=== PATIENT | male | born 1970 | race Caucasian/White ===

== ENCOUNTER 2017-07-16 21:42 | Emergency (ER) | payer BC, OTHER ==
[2017-07-16 21:51] VITALS: TEMP 98.1
[2017-07-16] MEDS ORDERED: NS 1,000 ML IV ONE (22:24)
[2017-07-16] MEDS ORDERED: HYDROmorphONE/DILAUDID 2 MG/ML INJ ONE (22:28)
[2017-07-16] MEDS ORDERED: ONDANSETRON 4 MG/2 ML VIAL ONE (22:28)
[2017-07-16] MEDS ORDERED: KETOROLAC 15 MG/1 ML SDV ONE (22:28)
[2017-07-16] MEDS ORDERED: ONDANSETRON 4 MG/2 ML VIAL IVP ONE (22:30)
[2017-07-16] MEDS ORDERED: HYDROmorphONE/DILAUDID 1 MG/ML INJ IVP ONE (22:30)
[2017-07-16] MEDS ORDERED: KETOROLAC 15 MG/1 ML SDV IVP ONE (22:31)
[2017-07-16 22:38] LABS: PLATELET COUNT 392 10^3/uL (150-400)
--- NOTE | 2017-07-16 23:06 | EDPHY ---
H & P Stated Complaint: R abd pain, N/V Time Seen by Provider: 07/16/17 22:12 HPI/ROS: HPI The patient presents with right-sided lower quadrant abdominal pain which began approximately 2.5 hr prior to presentation. He was walking down a flight of stairs when he had acute onset of achy right lower quadrant pain which radiated to his right flank. The pain is been constant though intermittently gets worse and sharp. It was associated with nausea without any vomiting. He has not had any fever, dysuria, hematuria. He has no prior history of similar pain. Today he awoke with a migraine headache and took a dose of Imitrex and slept for most of the day, he thinks he has been drinking less fluids than usual.. REVIEW OF SYSTEMS Constitutional: No fever, no chills. Eyes: No discharge. ENT: No sore throat. Cardiovascular: No chest pain, no palpitations. Respiratory: No cough, no shortness of breath. Gastrointestinal: See HPI Genitourinary: No hematuria. Musculoskeletal: No back pain. Skin: No rashes. Neurological: No headache. PMHx: Migraine headaches, hypertension Soc Hx: Housed with partner PHYSICAL General Appearance: Alert, no distress Eyes: Pupils equal and round no pallor or injection ENT, Mouth: Mucous membranes moist Respiratory: There are no retractions, lungs are clear to auscultation Cardiovascular: Regular rate and rhythm Gastrointestinal: Abdomen is soft and tender in the right lower quadrant without rebound or guarding Neurological: A&O, moves all extremities Skin: Warm and dry, no rashes Musculoskeletal: Neck is supple non tender Extremities: symmetrical, full range of motion Psychiatric: Patient is oriented X 3, there is no agitation Source: Patient Exam Limitations: No limitations - Personal History Current Tetanus/Diphtheria Vaccine: Yes - Medical/Surgical History Hx Asthma: No Hx Chronic Respiratory Disease: No Hx Diabetes: No Hx Cardiac Disease: No Hx Renal Disease: No Hx Cirrhosis: No Hx Alcoholism: No Hx HIV/AIDS: No Hx Splenectomy or Spleen Trauma: No Other PMH: HTN - Social History Smoking Status: Never smoked Constitutional: Initial Vital Signs Temperature (C) 36.7 C 07/16/17 21:49 Heart Rate 108 H 07/16/17 21:49 Respiratory Rate 18 07/16/17 21:49 Blood Pressure 183/112 H 07/16/17 21:49 O2 Sat (%) 96 07/16/17 21:49 O2 Delivery Mode Room Air Allergies/Adverse Reactions: No Known Allergies Allergy (Verified 07/16/17 21:51) Home Medications: Medication Instructions Recorded EFFEXOR XR 04/05/09 Atorvastatin Calcium 07/16/17 Lisinopril 07/16/17 Hydrocodone/APAP 5/325 [[place] 1 - 2 tab PO Q6H PRN #15 tab 07/17/17 5/325 (*)] Ondansetron Odt [Zofran Odt 4 mg 4 mg PO Q4 PRN #10 tab 07/17/17 (*)] Tamsulosin HCl [Flomax 0.4 MG (*)] 0.4 mg PO DAILY #10 cap 07/17/17 Medical Decision Making - Diagnostics Imaging Results: KUB two views demonstrates 2 likely kidney stones in the lower abdomen on the right side, largest measures 4 mm, interpreted by me, radiology interpretation is pending. Procedures: Bedside limited abdominal Ultrasound- performed and interpreted by me. Indication: Right flank and abdominal pain Findings: Mild right-sided hydronephrosis, no left-sided hydronephrosis, no fluid in Morison's pouch Impression: Mild right-sided hydronephrosis Differential Diagnosis: 46-year-old male with hypertension and migraine headaches presents with acute onset of right lower quadrant abdominal pain associated with nausea which radiates to the flank. Differential diagnosis includes ureterolithiasis, pyelonephritis, appendicitis, constipation. In the emergency department, patient received IV fluids, Toradol, Zofran with some improvement in his symptoms. He required a dose of Dilaudid on reassessment. Labs were checked and were all normal except for elevated white blood cell count and elevated BUN. UA returned positive for blood. I feel nephrolithiasis is the likely diagnosis. Bedside ultrasound was performed which demonstrated just mild right-sided hydronephrosis. KUB was performed and did identify 3-4 mm object likely kidney stone near the bladder. The patient had ongoing pain and required lidocaine. He eventually felt well enough to go home. I have discussed straining his urine, medications, and Urology follow-up. - Data Points Laboratory Results: Laboratory Results 07/16/17 21:50 07/16/17 21:50 07/16/17 07/16/17 07/16/17 23:00 21:50 21:50 WBC 16.46 10^3/uL H 10^3/uL (3.80-9.50) RBC 5.56 10^6/uL 10^6/uL (4.40-6.38) Hgb 17.1 g/dL g/dL (13.7-17.5) Hct 51.2 % H % (40.0-51.0) MCV 92.1 fL fL (81.5-99.8) MCH 30.8 pg pg (27.9-34.1) MCHC 33.4 g/dL g/dL (32.4-36.7) RDW 12.6 % % (11.5-15.2) Plt Count 392 10^3/uL 10^3/uL (150-400) MPV 11.2 fL fL (8.7-11.7) Neut % (Auto) 76.9 % H % (39.3-74.2) Lymph % (Auto) 13.6 % L % (15.0-45.0) [place] % (Auto) 7.2 % % (4.5-13.0) Eos % (Auto) 1.1 % % (0.6-7.6) Baso % (Auto) 0.7 % % (0.3-1.7) Nucleat RBC Rel Count 0.0 % % (0.0-0.2) Absolute Neuts (auto) 12.64 10^3/uL H 10^3/uL (1.70-6.50) Absolute Lymphs (auto) 2.24 10^3/uL 10^3/uL (1.00-3.00) Absolute Monos (auto) 1.19 10^3/uL H 10^3/uL (0.30-0.80) Absolute Eos (auto) 0.18 10^3/uL 10^3/uL (0.03-0.40) Absolute Basos (auto) 0.12 10^3/uL H 10^3/uL (0.02-0.10) Absolute Nucleated RBC 0.00 10^3/uL 10^3/uL (0-0.01) Immature Gran % 0.5 % % (0.0-1.1) Immature Gran # 0.09 10^3/uL 10^3/uL (0.00-0.10) Sodium 141 mEq/L mEq/L (135-145) Potassium 4.5 mEq/L mEq/L (3.5-5.2) Chloride 105 mEq/L mEq/L (97-110) Carbon Dioxide 22 mEq/l mEq/l (22-31) Anion Gap 14 mEq/L mEq/L (8-16) BUN 35 mg/dL H mg/dL (7-23) Creatinine 1.3 mg/dL mg/dL (0.7-1.3) Estimated GFR 60 Glucose 111 mg/dL H mg/dL (70-100) Calcium 10.2 mg/dL mg/dL (8.5-10.4) Total Bilirubin 0.3 mg/dL mg/dL (0.1-1.4) Conjugated Bilirubin 0.3 mg/dL mg/dL (0.0-0.5) Unconjugated Bilirubin 0.0 mg/dL mg/dL (0.0-1.1) AST 37 IU/L IU/L (17-59) ALT 33 IU/L IU/L (21-72) Alkaline Phosphatase 56 IU/L IU/L (38-126) Total Protein 7.4 g/dL g/dL (6.3-8.2) Albumin 4.5 g/dL g/dL (3.5-5.0) Lipase 290 IU/L IU/L (23-300) Urine Color YELLOW Urine Appearance CLEAR Urine pH 5.0 (5.0-7.5) Ur Specific [place] 1.023 (1.002-1.030) Urine Protein NEGATIVE (NEGATIVE) Urine Ketones NEGATIVE (NEGATIVE) Urine Blood 2+ H (NEGATIVE) Urine Nitrate NEGATIVE (NEGATIVE) Urine Bilirubin NEGATIVE (NEGATIVE) Urine Urobilinogen NEGATIVE EU EU (0.2-1.0) Ur Leukocyte Esterase NEGATIVE (NEGATIVE) Urine RBC 15-25 /hpf H /hpf (0-3) Urine WBC 1-3 /hpf /hpf (0-3) Ur Epithelial Cells TRACE /lpf /lpf (NONE-1+) Urine Mucus TRACE /lpf /lpf (NONE-1+) Urine Glucose NEGATIVE (NEGATIVE) Medications Given: Discontinued Medications Hydrocodone Bitart/Acetaminophen ([place] 5/325mg Prepack#6) 1 btl TAKEHOME EDNOW ONE Stop: 07/17/17 04:41 Last Admin: 07/17/17 04:49 Dose: 1 btl Hydromorphone HCl (Dilaudid) 0.5 mg IVP EDNOW ONE Stop: 07/16/17 22:31 Last Admin: 07/16/17 22:35 Dose: 0.5 mg Hydromorphone HCl (Dilaudid) 0.5 mg IVP EDNOW ONE Stop: 07/17/17 03:21 Last Admin: 07/17/17 03:23 Dose: 0.5 mg Sodium Chloride (Ns) 1,000 mls @ 0 mls/hr IV EDNOW ONE; Wide Open PRN Reason: Protocol Stop: 07/16/17 22:25 Last Admin: 07/16/17 22:35 Dose: 1,000 mls Lidocaine HCl 140 mg/ Sodium (Chloride) 114 mls @ 600 mls/hr IV EDNOW ONE Stop: 07/17/17 00:00 Last Admin: 07/17/17 00:12 Dose: 114 mls Sodium Chloride (Ns) 1,000 mls @ 0 mls/hr IV ONCE ONE; Wide Open PRN Reason: Protocol Stop: 07/17/17 00:03 Last Admin: 07/17/17 00:04 Dose: 1,000 mls Sodium Chloride (Ns) 1,000 mls @ 0 mls/hr IV ONCE ONE PRN Reason: Wide Open Stop: 07/17/17 00:04 Last Admin: 07/17/17 00:12 Dose: Not Given Ketorolac Tromethamine (Toradol) 15 mg IVP EDNOW ONE Stop: 07/16/17 22:32 Last Admin: 07/16/17 22:35 Dose: 15 mg Ondansetron HCl (Zofran) 4 mg IVP EDNOW ONE Stop: 07/16/17 22:31 Last Admin: 07/16/17 22:35 Dose: 4 mg Ondansetron HCl (Zofran Odt 4 Mg Prepack#2) 1 btl TAKEHOME EDNOW ONE Stop: 07/17/17 04:41 Last Admin: 07/17/17 04:48 Dose: 1 btl Departure - Departure Disposition: Home, Routine, Self-Care Clinical Impression: Ureterolithiasis Condition: Good Instructions: Hydrocodone/Acetaminophen (By mouth), Ondansetron (By mouth), Renal Colic (ED) Additional Instructions: Please make sure to drink plenty of fluids. You should return to the emergency department if your worse in any way. Take ibuprofen 400 mg every 6 hr as needed for pain. If the pain is still severe you can take a pain pill that we have prescribed for you. If your continuing to have pain in the next few days, I recommend you follow up with the urologist. I have listed his information below. Referrals: Dayton Means MD [Medical Doctor] - As per Instructions Prescriptions: Hydrocodone/APAP 5/325 [[place] 5/325 (*)] 1 - 2 tab PO Q6H PRN #15 tab PRN Reason: Pain, Breakthrough Ondansetron Odt [Zofran Odt 4 mg (*)] 4 mg PO Q4 PRN #10 tab PRN Reason: Nausea/Vomiting, Can'T Take Po Tamsulosin HCl [Flomax 0.4 MG (*)] 0.4 mg PO DAILY #10 cap
[2017-07-16] MEDS ORDERED: NS IV ONE (23:49)
[2017-07-16] MEDS ORDERED: LIDOCAINE IV ONE (23:49)
[2017-07-17] MEDS ORDERED: NS 1,000 ML IV ONE ×2 (00:02→00:03)
[2017-07-17 02:14] VITALS: O2SAT 95
[2017-07-17] MEDS ORDERED: HYDROmorphONE/DILAUDID 2 MG/ML INJ ONE (03:19)
[2017-07-17] MEDS ORDERED: HYDROmorphONE/DILAUDID 1 MG/ML INJ IVP ONE (03:20)
[2017-07-17 04:38] VITALS: BP 109/73; PULSE 94; RESP 15
[2017-07-17] MEDS ORDERED: ONDANSETRON 4MG PREPACK#2 BTL TAKEHOME ONE (04:40)
[2017-07-17] MEDS ORDERED: HYDROCOD/APAP 5/325 PREPACK#6 BTL TAKEHOME ONE (04:40)
== END 2017-07-17 04:57 | disposition home or self-care (01) ==
DX: N20.1 Calculus of ureter (principal); I10 Essential (primary) hypertension; E86.9 Volume depletion, unspecified
CPT/HCPCS: 96374; J1170; J1885; J2405

== ENCOUNTER 2017-07-17 18:44 | Emergency (ER) | payer BC ==
[2017-07-17 18:50] VITALS: TEMP 98.1; O2SAT 96
--- NOTE | 2017-07-17 18:57 | EDPHY ---
H & P Stated Complaint: Here yesterday;dx w/kidney stone;still w/RLQ pain unrelieved w /meds Time Seen by Provider: 07/17/17 18:56 HPI/ROS: CHIEF COMPLAINT: Worsening right-sided abdominal pain HISTORY OF PRESENT ILLNESS: The patient presents the ED with complaints of worsening right-sided abdominal pain. He was seen in the emergency department in the office aide hours and diagnosed with a possible kidney stone. The patient was discharged home after receiving IV lidocaine and Toradol. The patient reports he has continued to have ongoing pain throughout the day. He complains primarily of right upper quadrant pain. The patient denies past medical history. He does have a history of bilateral hernia repair. The patient denies prior history of nephrolithiasis. REVIEW OF SYSTEMS: A comprehensive 10 point review of systems is otherwise negative aside from elements mentioned in the history of present illness. Source: Patient - Personal History Current Tetanus Diphtheria and Acellular Pertussis (TDAP): Yes - Medical/Surgical History Hx Asthma: No Hx Chronic Respiratory Disease: No Hx Diabetes: No Hx Cardiac Disease: No Hx Renal Disease: No Hx Cirrhosis: No Hx Alcoholism: No Hx HIV/AIDS: No Hx Splenectomy or Spleen Trauma: No Other PMH: HTN - Social History Smoking Status: Never smoked - Physical Exam Exam: General Appearance: Alert, mild discomfort Eyes: Pupils equal and round no pallor or injection ENT, Mouth: Mucous membranes moist Respiratory: There are no retractions, lungs are clear to auscultation Cardiovascular: Regular rate and rhythm Gastrointestinal: Tenderness to palpation right upper quadrant Neurological: A&O, normal motor function, normal sensory exam, normal cranial nerves Skin: Warm and dry, no rashes Musculoskeletal: Neck is supple nontender Extremities: symmetrical, full range of motion Constitutional: Initial Vital Signs Temperature (C) 36.7 C 07/17/17 18:48 Heart Rate 92 07/17/17 18:48 Respiratory Rate 18 07/17/17 18:48 Blood Pressure 159/100 H 07/17/17 18:48 O2 Sat (%) 96 07/17/17 18:48 O2 Delivery Mode Room Air Allergies/Adverse Reactions: No Known Allergies Allergy (Verified 07/17/17 18:47) Home Medications: Medication Instructions Recorded EFFEXOR XR 04/05/09 Atorvastatin Calcium 07/16/17 Lisinopril 07/16/17 Hydrocodone/APAP 5/325 [[place] 1 - 2 tab PO Q6H PRN #15 tab 07/17/17 5/325 (*)] Ondansetron Odt [Zofran Odt 4 mg 4 mg PO Q4 PRN #10 tab 07/17/17 (*)] Tamsulosin HCl [Flomax 0.4 MG (*)] 0.4 mg PO DAILY #10 cap 07/17/17 oxyCODONE/APAP 5/325 [Percocet 1 - 2 tab PO Q6-8PRN PRN #20 tab 07/17/17 5/325 (RX)] Medical Decision Making - Diagnostics Imaging Results: Imaging Impressions Abdomen Ultrasound 07/17/17 19:01 Impression: Normal right upper quadrant ultrasound. Findings discussed with Matt Graham 07/17/2017 at 19:55. Abdomen/Pelvis CT 07/17/17 19:49 Impression: 1. 3-mm stone at the right ureterovesical junction with mild obstructive uropathy and moderate perinephric and periureteric stranding consistent with forniceal rupture. 2. Constipation. 3. Additional findings, as above. Findings discussed with Matt Graham MD on July 17, 2017 at 2020 hours. Attention: This CT examination is specifically designed to evaluate patients who are clinically suspected of having acute obstructive uropathy. This examination does not use radiographic contrast, and as such, provides only a limited evaluation of the abdomen, pelvis, and retroperitoneum. If there is further clinical suspicion for pathological conditions other than obstructive uropathy, a complete CT evaluation of the abdomen and pelvis utilizing intravenous and oral contrast should be considered. ED Course/Re-evaluation: The patient presents to the ED for evaluation of worsening right-sided abdominal pain. He was diagnosed presumptively with a kidney stone yesterday. On my initial examination he had primarily right upper quadrant and right mid quadrant tenderness. I reviewed the results of his past records. The patient' s ultrasound demonstrated no acute hydronephrosis or other abnormality. The patient's CT scan did demonstrate evidence of a very distal 3 mm right ureteral stone however the patient has subsequently developed a forniceal rupture. The patient had an IV established. He received several L of normal saline. The patient received IV pain medications. I re-evaluated the patient at 9:00 p.m. informing him of the diagnosis. The patient was given oral Flomax. The patient is feeling much better. He is requesting that his hydrocodone be changed to Percocet. The patient would like to be discharged home. He will follow up with Urology as scheduled. He understands return to the ED for markedly worsening pain, vomiting or other concerns. Differential Diagnosis: Differential diagnosis considered includes cholecystitis, nephrolithiasis, ureterolithiasis, appendicitis, perforation obstruction - Data Points Laboratory Results: Laboratory Results 07/17/17 19:05 07/17/17 19:05 07/17/17 07/17/17 19:05 19:05 WBC 17.75 10^3/uL H 10^3/uL (3.80-9.50) RBC 5.32 10^6/uL 10^6/uL (4.40-6.38) Hgb 16.5 g/dL g/dL (13.7-17.5) Hct 49.8 % % (40.0-51.0) MCV 93.6 fL fL (81.5-99.8) MCH 31.0 pg pg (27.9-34.1) MCHC 33.1 g/dL g/dL (32.4-36.7) RDW 12.7 % % (11.5-15.2) Plt Count 368 10^3/uL 10^3/uL (150-400) MPV 10.8 fL fL (8.7-11.7) Neut % (Auto) 78.0 % H % (39.3-74.2) Lymph % (Auto) 13.1 % L % (15.0-45.0) [place] % (Auto) 7.5 % % (4.5-13.0) Eos % (Auto) 0.4 % L % (0.6-7.6) Baso % (Auto) 0.5 % % (0.3-1.7) Nucleat RBC Rel Count 0.0 % % (0.0-0.2) Absolute Neuts (auto) 13.85 10^3/uL H 10^3/uL (1.70-6.50) Absolute Lymphs (auto) 2.33 10^3/uL 10^3/uL (1.00-3.00) Absolute Monos (auto) 1.33 10^3/uL H 10^3/uL (0.30-0.80) Absolute Eos (auto) 0.07 10^3/uL 10^3/uL (0.03-0.40) Absolute Basos (auto) 0.08 10^3/uL 10^3/uL (0.02-0.10) Absolute Nucleated RBC 0.00 10^3/uL 10^3/uL (0-0.01) Immature Gran % 0.5 % % (0.0-1.1) Immature Gran # 0.09 10^3/uL 10^3/uL (0.00-0.10) Sodium 141 mEq/L mEq/L (135-145) Potassium 4.5 mEq/L mEq/L (3.5-5.2) Chloride 105 mEq/L mEq/L (97-110) Carbon Dioxide 23 mEq/l mEq/l (22-31) Anion Gap 13 mEq/L mEq/L (8-16) BUN 25 mg/dL H mg/dL (7-23) Creatinine 1.7 mg/dL H mg/dL (0.7-1.3) Estimated GFR 44 Glucose 102 mg/dL H mg/dL (70-100) Calcium 9.6 mg/dL mg/dL (8.5-10.4) Total Bilirubin 0.6 mg/dL D mg/dL (0.1-1.4) Conjugated Bilirubin 0.3 mg/dL mg/dL (0.0-0.5) Unconjugated Bilirubin 0.3 mg/dL mg/dL (0.0-1.1) AST 29 IU/L IU/L (17-59) ALT 37 IU/L IU/L (21-72) Alkaline Phosphatase 49 IU/L IU/L (38-126) Total Protein 6.9 g/dL g/dL (6.3-8.2) Albumin 4.1 g/dL g/dL (3.5-5.0) Lipase 90 IU/L IU/L (23-300) Medications Given: Discontinued Medications Sodium Chloride (Ns) 1,000 mls @ 0 mls/hr IV EDNOW ONE; Wide Open PRN Reason: Protocol Stop: 07/17/17 19:49 Last Admin: 07/17/17 19:53 Dose: 1,000 mls Sodium Chloride (Ns) 1,000 mls @ 0 mls/hr IV EDNOW ONE; Wide Open PRN Reason: Protocol Stop: 07/17/17 19:49 Last Admin: 07/17/17 19:54 Dose: 1,000 mls Ketorolac Tromethamine (Toradol) 15 mg IVP EDNOW ONE Stop: 07/17/17 19:14 Last Admin: 07/17/17 19:15 Dose: 15 mg Tamsulosin HCl (Flomax) 0.4 mg PO EDNOW ONE Stop: 07/17/17 20:54 Last Admin: 07/17/17 21:02 Dose: 0.4 mg Departure - Departure Disposition: Home, Routine, Self-Care Clinical Impression: Ureterolithiasis Condition: Good Instructions: Kidney Stones (ED) Additional Instructions: 1. Take Ibuprofen or Motrin 600 mg by mouth three times a day. 2. Percocet as needed for severe pain 3. Flomax as directed 4. Zofran as needed for nausea 5. Strain urine as directed 6. Return to the Emergency Department for intractable pain, fever or vomiting. 7. Followup with the urologist you have been referred to for unimproved symptoms. Referrals: DARLING VILLASENOR [Primary Care Provider] - As per Instructions Prescriptions: oxyCODONE/APAP 5/325 [Percocet 5/325 (RX)] 1 - 2 tab PO Q6-8PRN PRN #20 tab PRN Reason: for pain
[2017-07-17] MEDS ORDERED: KETOROLAC 15 MG/1 ML SDV ONE (19:12)
[2017-07-17] MEDS ORDERED: KETOROLAC 15 MG/1 ML SDV IVP ONE (19:13)
[2017-07-17 19:17] LABS: PLATELET COUNT 368 10^3/uL (150-400)
[2017-07-17] MEDS ORDERED: NS 1,000 ML IV ONE ×2 (19:48)
[2017-07-17] MEDS ORDERED: TAMSULOSIN HCL 0.4 MG CAP PO ONE (20:53)
[2017-07-17] MEDS ORDERED: OXYCODONE/APAP 5/325MG PREPACK#4 BTL TAKEHOME ONE (21:03)
[2017-07-17 21:45] VITALS: BP 144/95; PULSE 110; RESP 18
== END 2017-07-17 21:56 | disposition home or self-care (01) ==
DX: N20.1 Calculus of ureter (principal); I10 Essential (primary) hypertension; E86.9 Volume depletion, unspecified
CPT/HCPCS: 96374; J1885